=== PATIENT | female | born 1935 | race Caucasian/White ===

== ENCOUNTER 2017-10-31 16:51 | Emergency (ER) | payer MEDICARE ==
[2017-10-31 17:45] LABS: #Eosinphils 0.1 thou/uL (0.0-0.7); #Lymphocytes 2.2 thou/uL (1.20-3.40); #Monocytes 0.7 thou/uL (0.11-0.59); #Neutrophils 3.3 thou/uL (1.40-6.50); %Basophils 0.5 % (0.0-1.0); %Eosinophils 1.3 % (0.0-10.0); %Lymphocytes 35.2 % (21.0-51.0); %Monocytes 10.7 % (0.0-10.0); Hematocrit 42.3 % (36.0-47.0); Mean Platelet Volume 7.9 fL (7.4-10.4); Red Blood Cell (RBC) Count 4.58 mill/uL (4.20-5.40); White Blood Cell (WBC) Count 6.3 thou/uL (4.8-10.8)
[2017-10-31 18:09] LABS: ALT (SGPT) 12 U/L (8-55); AST (SGOT) 17 U/L (5-34); Alkaline Phosphatase 68 U/L (40-150); Anion Gap 12 mmol/L (10-20); BUN (Urea Nitrogen) 15 mg/dL (9.8-20.1); Bilirubin, Total 0.4 mg/dL (0.2-1.2); Calc. Creatinine Clearance 0 mL/min (70-130); Calcium 9.5 mg/dL (7.8-10.44); Carbon Dioxide 26 mmol/L (23-31); Chloride 104 mmol/L (98-107); Estimated GFR-MDRD 85; Globulin 3.8 g/dL (2.4-3.5); Protein, Total 7.8 g/dL (6.0-8.3)
[2017-10-31 18:12] LABS: Troponin I Less than 0.010 ng/mL (< 0.028)
[2017-10-31 18:13] LABS: Bilirubin Negative (Negative); Blood, Urine Negative (Negative); Glucose, Urine (Dipstick) Negative (Negative); Ketone, Urine Negative (Negative); Nitrite Negative (Negative); Protein, Urine (Dipstick) Negative (Neg-Trace); Urobilinogen 0.2 mg/dL (0.2-1.0)
[2017-10-31 18:16] LABS: Bacteria/HPF 4+ HPF (None Seen); Hyaline Casts/LPF 0-3 HYALINE CAST LPF (0-3 Hyaline); RBC/HPF 0-3 HPF (0-3); Squamous Epithelial None Seen HPF (0-3)
[2017-10-31] MEDS ORDERED: Ondansetron HCl/PF 4 MG/2 ML Vial ONE (18:33)
[2017-10-31] MEDS ORDERED: Nitrofurantoin Macrocrystal 50 MG CAP PO SCH (20:00)
--- NOTE | 2017-10-31 21:05 | RAD ---
EXAM: ONE VIEW CHEST 10/31/17 HISTORY: Slurred speech, nonreactive left pupil. COMPARISON: 03/24/17. FINDINGS: Portable upright chest demonstrates sternotomy wires. Normal cardiac silhouette. Pulmonary vessels an d hilum are normal. Costophrenic angles are clear. No consolidation or mass. No pneumothorax or osseo us abnormalities. IMPRESSION: No acute cardiopulmonary process. POS: [facility]
--- NOTE | 2017-10-31 21:09 | CT ---
EXAM: NONCONTRAST HEAD CT 10/31/17 COMPARISON: 03/24/17, 12/08/16. HISTORY: Slurred speech. Nonreactive left pupil. TECHNIQUE: Noncontrast head CT is performed from skull base to skull vertex. FINDINGS: No parenchymal hemorrhage. No extra-axial hematoma. No midline shift. Basilar cisterns are patent. Br ain volume, age appropriate. Cortical cheek-white matter differentiation is preserved. Ventricles and sulci are patent and symmetric. Chronic small vessel ischemic changes of the white mat ter are identified. Remote white matter infarct to the left and right frontal subcortical white matte r. Remote infarct involving the mid portion of the left allen radiata extending into the posterior a spect of the left lentiform nucleus. Stable hypodensity in the right lentiform nucleus. Stable opacif ication of the right middle ear. Adequate aeration of the left mastoid air cells and paranasal sinuse s. Intact calvarium. IMPRESSION: 1. No acute intracranial process. 2. Chronic small vessel ischemic changes of the white matter. 3. Remote insult involving the white matter structures and deep cheek matter structures. POS: [facility]
--- NOTE | 2017-11-24 13:26 | EKG ---
Test Reason : SLURRED SPEECH Blood Pressure : / mmHG Vent. Rate : 056 BPM Atrial Rate : 056 BPM P-R Int : 256 ms QRS Dur : 076 ms QT Int : 450 ms P-R-T Axes : 072 -16 054 degrees QTc Int : 434 ms Sinus bradycardia with 1st degree A-V block Possible Left atrial enlargement Anteroseptal infarct , age undetermined Abnormal ECG Confirmed by VJ JEFFERSON ([id number]), magazine editor PUMA PETERSON ([id number]) on 11/24/2017 1:26:15 PM Referred By: Confirmed By:VJ JEFFERSON
== END 2017-10-31 20:38 | disposition home or self-care (01) ==
LOC: ERS 16:51
DX: N39.0 Urinary tract infection, site not specified (principal); E11.9 Type 2 diabetes mellitus without complications; I10 Essential (primary) hypertension; G40.909 Epilepsy, unspecified, not intractable, without status epilepticus; F32.9 Major depressive disorder, single episode, unspecified; Z79.84 Long term (current) use of oral hypoglycemic drugs; Z79.899 Other long term (current) drug therapy; Z86.73 Personal history of transient ischemic attack (TIA), and cerebral infarction without residual deficits
CPT/HCPCS: 36415; 70450; 71010; 80053; 81003; 81015; 82553; 84484; 85025; 93005; J2405

== ENCOUNTER 2017-10-31 20:39 | Inpatient (IN) | payer MEDICARE ==
[2017-10-31] MEDS ORDERED: Ondansetron ODT 4 MG TAB ONE (21:20)
[2017-10-31] MEDS ORDERED: Lorazepam 2 MG/ML VIAL ONE (21:38)
[2017-10-31] MEDS ORDERED: Metoclopramide HCl 10 MG/2 ML VIAL ONE (21:38)
--- NOTE | 2017-10-31 22:53 | RAD ---
EXAM: ONE VIEW ABDOMEN 10/31/17 HISTORY: Nausea. Vomiting. COMPARISON: None. Nonspecific bowel gas pattern. No suspicious densities in the abdomen and pelvis. Calcification of th e splenic artery is noted. No pneumoperitoneum in the supine projection. There is a small amount of f ecal material in the distal sigmoid colon and rectum. IMPRESSION: Nonspecific bowel gas pattern. POS: [facility]
[2017-11-01] MEDS ORDERED: Ondansetron ODT 4 MG TAB SL PRN (01:17)
[2017-11-01] MEDS ORDERED: Sodium Chloride 0.9% 1,000 ML IV SCH (01:17)
[2017-11-01] MEDS ORDERED: Ondansetron HCl/PF 4 MG/2 ML Vial IVP PRN ×2 (01:17→07:55)
[2017-11-01] MEDS ORDERED: Acetaminophen 325 MG TAB PO PRN (01:17)
[2017-11-01] MEDS ORDERED: hydrALAZINE 20 MG/ML VIAL SLOW IVP PRN (01:18)
[2017-11-01 01:43] VITALS: BMI 19.5
[2017-11-01] MEDS ORDERED: Dextrose 5% in Water 1,000 ML IV PRN (07:54)
[2017-11-01] MEDS ORDERED: Insulin Regular 300 UNITS/3 ML VIAL SC PRN ×2 (07:54)
[2017-11-01] MEDS ORDERED: Dextrose 50% Abboject 50 ML SYRINGE IVP PRN (07:54)
[2017-11-01] MEDS ORDERED: Sodium Chloride 0.9% 500 ML IVPB SCH (08:00)
[2017-11-01] MEDS ORDERED: Metoprolol Tartrate 5 MG/5 ML VIAL IVP SCH (08:00)
--- NOTE | 2017-11-01 08:28 | HP ---
DATE OF ADMISSION: 11/01/2017 CHIEF COMPLAINT ON ADMISSION: Persistent nausea and vomiting. HISTORY OF PRESENT ILLNESS: The patient is an 82-year-old female who had been seen earlier in the em ergency room on the day of admission, what her family thought was possible CVA. She had stroke-like symptoms. She had a negative workup except for a UTI and was being discharged home. When she got in to her car, she began having persistent nausea and vomiting. She was brought back into the emergency room where it was decided to admit her due to frailty, failure to thrive and persistent nausea and v omiting. She was felt to be somewhat dry as well. PAST MEDICAL HISTORY: Significant for multiple UTIs in the last several months and a stroke in February . She had breast cancer in the past. 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 PAST SURGICAL HISTORY: Her surgeries include coronary artery bypass graft surgery with 4 vessels, ma stectomy of the left breast. PSYCHIATRIC HISTYORY: She has had psychiatric history in the past significant for depression. SOCIAL HISTORY: There has been no recent alcohol, drug use or smoking. She lives at home with her lamar blackwood. ALLERGIES: To PROMETHAZINE and SULFA. CURRENT MEDICATIONS: Include aspirin 325 one daily, Vasotec 10 mg daily, gabapentin 400 mg at bedtim e, Keppra 500 mg b.i.d., Lipitor 20 mg at bedtime, metoprolol succinate 50 mg daily, metformin 500 mg b.i.d., citalopram 10 mg daily, and multiple vitamin. REVIEW OF SYSTEMS: General: Showed no fever, chills, weakness, or sweats. HEENT: No change in vis ion or pain. No sore throat, coughing or congestion. Cardiovascular: Denies palpitations, chest pa in. Chest: Denies shortness of breath or coughing. Gastrointestinal: Significant for nausea, vomi ting as one of the reason for admission. Denies diarrhea, no blood in urine or stool. Genitourinary : Denies painful urination or hematuria. Musculoskeletal: Complains of pain in the right hip and r ight knee. There has been no falls or trauma. Neurologic: No complaints of dizziness, headache or blurred vision. Endocrine: No areas of swelling or edema. Skin: No new rashes, lesions or hives. Psychiatric: No change in mentation. PHYSICAL EXAMINATION: At the time of admission: VITAL SIGNS: Blood pressure was 204/44, pulse 70, respirations 18, temperature 99.2, pain scale is 0 , O2 sat is 93% on room air. GENERAL: This is an elderly cachectic female, alert and responsive, but somewhat confused, stating that her days have run together. HEENT: Temporal wasting noted with sunken eyes. TMs and nares clear. Pharynx is somewhat dry. NECK: Supple, trachea midline, no mass. CHEST: Clear to auscultation. HEART: Irregular rate, irregular rhythm. BREASTS: Status post left mastectomy. ABDOMEN: Generally tender around the stomach, but no acute areas of pain or tenderness. GENITOURINARY: Deferred. EXTREMITIES: Without clubbing, cyanosis, or edema. There is symmetrical muscular wasting in upper a nd lower extremities. No evidence of swelling or deep venous thrombosis. There is pain in the right hip with palpation, felt to be a developing pressure sore. SKIN: Without rashes or lesions. Poor turgor is noted. NEUROLOGIC: Cranial nerves are grossly intact. Sensory is grossly intact. Unable to test gait and cerebellar function. Mental status is mildly confused, questioning, but responsive, clear and logica l. LABORATORY DATA: Lab work on admission showed WBCs at 6.3, hemoglobin 13.9, hematocrit 42.3 with giorgio telets at 206. Her sodium is 138, potassium 3.7, chloride 104, CO2 26, BUN 15, creatinine 0.67, gluc ose of 127. Hemoglobin A1c has not been done in quite some time. Calcium 9.5. Liver functions unre markable. UA shows too numerous to count WBCs with moderate leukocyte esterase. ASSESSMENT: 1. Urinary tract infection with possible early septic changes. 2. Dehydration. 3. Adult failure to thrive with diffuse muscular wasting. 4. Nausea and vomiting, probably due to urinary tract infection. 5. Right hip pain, probably arthritic versus developing pressure sore. 6. Hypertension. We will try to control her blood pressure with metoprolol and/or IV Vasotec. PLAN: Will be IV fluid bolus, IV antibiotics, and antiemetics. Pain management by turning the patie nt every 2 hours and get a specialty mattress to relieve pressure sores and serially reevaluate her.
[2017-11-01] MEDS: levETIRAcetam 500 MG TAB PO SCH ×2 (09:39→20:16)
[2017-11-01] MEDS: cefTRIAXone\\ROCEPHIN 1 GM, Syringe 0.4 ML in Sterile Water 9.6 ML SLOW IVP SCH (09:46)
[2017-11-01] MEDS: Acetaminophen 325 MG TAB PO PRN (10:13)
[2017-11-01] MEDS: Sodium Chloride 0.9% 1,000 ML IV SCH ×2 (12:05→20:16)
--- NOTE | 2017-11-01 12:54 | EKG ---
Test Reason : Blood Pressure : / mmHG Vent. Rate : 123 BPM Atrial Rate : 125 BPM P-R Int : 000 ms QRS Dur : 080 ms QT Int : 354 ms P-R-T Axes : 000 -07 175 degrees QTc Int : 506 ms Atrial fibrillation with RVR. Septal infarct (cited on or before 22-SEP-2000) Marked ST abnormality, possible inferior subendocardial injury Marked ST abnormality, possible anterolateral subendocardial injury Abnormal ECG When compared with ECG of 31-OCT-2017 17:18, (Unconfirmed) Afib has replaced Sinus rhythm. Significant changes have occurred Confirmed by KRISH CARRANZA ([id number]) on 11/01/2017 12:53:36 PM Referred By: Neville BOWMAN Confirmed By:KRISH CARRANZA
[2017-11-02] MEDS: Sodium Chloride 0.9% 1,000 ML IV SCH ×3 (00:21→16:37)
[2017-11-02 06:32] LABS: #Eosinphils 0.1 thou/uL (0.0-0.7); #Lymphocytes 2.3 thou/uL (1.20-3.40); #Monocytes 0.8 thou/uL (0.11-0.59); #Neutrophils 4.9 thou/uL (1.40-6.50); %Basophils 0.3 % (0.0-1.0); %Lymphocytes 28.5 % (21.0-51.0); Hematocrit 35.4 % (36.0-47.0); Mean Platelet Volume 8.5 fL (7.4-10.4); Red Blood Cell (RBC) Count 3.84 mill/uL (4.20-5.40); White Blood Cell (WBC) Count 8.1 thou/uL (4.8-10.8)
[2017-11-02 06:44] LABS: Anion Gap 11 mmol/L (10-20); BUN (Urea Nitrogen) 8 mg/dL (9.8-20.1); Calc. Creatinine Clearance 66 mL/min (70-130); Calcium 8.6 mg/dL (7.8-10.44); Carbon Dioxide 22 mmol/L (23-31); Chloride 109 mmol/L (98-107); Estimated GFR-MDRD Greater than 90
--- NOTE | 2017-11-02 08:09 | PRG ---
DATE OF SERVICE: 11/02/2017 This is ANANTH Torres-Justine dictating for Brent Banda M.D. SUBJECTIVE: The patient is awake. She denies any problems besides her right hip hurting just a taj le bit. PHYSICAL EXAMINATION: GENERAL: Upon evaluation, she is awake. VITAL SIGNS: Her blood pressure is 160/70, pulse 60, respirations afebrile. NECK: Supple with no increased JVP or carotid bruit. Carotid had good upstroke with no thyromegaly. COR: Regular rate and rhythm. CHEST: Symmetrical. Clear to auscultation and percussion. ABDOMEN: Soft and nontender with normoactive bowel sounds. No bruit or organomegaly. EXTREMITIES: No edema. She had palpable pedal pulses. NEUROLOGIC: She is awake, but does have slurred speech and does have weakness from her stroke. LABORATORY DATA: Showed normal CBC. Her CMP showed glucose slightly being elevated at 115. We stil l do not have her urine C&S. ASSESSMENT: 1. Right hip degenerative joint disease. 2. Dehydration. 3. Urinary tract infection with normal culture as outpatient. PLAN: We will wait for the culture now to make sure it is negative. We will also talk to the daught er about jail placement. Otherwise, we will follow up with lab in the morning.
[2017-11-02] MEDS: levETIRAcetam 500 MG TAB PO SCH ×2 (08:22→20:28)
[2017-11-02] MEDS: cefTRIAXone\\ROCEPHIN 1 GM, Syringe 0.4 ML in Sterile Water 9.6 ML SLOW IVP SCH (08:23)
[2017-11-02] MEDS ORDERED: FLU VACC TS2017-18 (>65YR) 0.5 ML SYRINGE IM ONE (09:00)
--- NOTE | 2017-11-02 10:06 | PQF ---
CLINICAL DOCUMENTATION IMPROVEMENT CLARIFICATION FORM: ICD-10 Updated PLEASE DO AN ADDENDUM TO THE PROGRESS NOTE WITH ANY DOCUMENTATION UPDATES OR ADDITIONS AND CARRY THROUGH TO DC SUMMARY. THANK YOU. Date: 11/07/17 ATTN: DR. BOWMAN Please exercise your independent, professional judgment in responding to the clarification form. Clinical indicators are provided on the bottom of this form for your review Please check appropriate box(s): [ ] Protein Calorie Malnutrition: [ ] Mild [ ] Moderate [ ] Severe [ ] Other Malnutrition (please specify) __ [ ] Underweight without malnutrition [ x ] Cachexia [ ] Other diagnosis [ ] Unable to determine In addition, please specify: Present on Admission (POA): [ x ] Yes [ ] No [ ] Unable to determine CLINICAL INDICATORS - SIGNS / SYMPTOMS / LABS DIETARY NOTE 11/01: "KCAL AND G PROTEIN LIKELY NOT MET/CLEAR LIQUID DIET IS NOTE ADEQUATE." H&P 11/01: "SHE WAS BROUGHT BACK INTO THE EMERGENCY ROOM WHERE IT WAS DECIDED TO ADMIT HER DUE TO FRAILTY, FAILURE TO THRIVE AND PERSISTENT NAUSEA AND VOMITING. " H&P 11/01: "ADULT FAILURE TO THRIVE WITH DIFFUSE MUSCULAR WASTING" BMI 19.5 RISKS: NAUSEA AND VOMITING PER H&P TREATMENT: DIETARY CONSULT NUTRITIONAL SUPPLEMENTS ANTIEMETICS (This form is maintained as a part of the permanent medical record) 2014 [employer]. All Rights Reserved AMANDA [email or web address] Office: [phone] [facility]ENTER[facility]
[2017-11-02] MEDS: Acetaminophen 325 MG TAB PO PRN (17:20)
[2017-11-02] MEDS ORDERED: Amlodipine 10 MG TAB PO SCH (20:15)
[2017-11-02] MEDS: cloNIDine 0.1 MG TAB PO PRN (23:00)
[2017-11-03 05:41] LABS: #Eosinphils 0.1 thou/uL (0.0-0.7); #Lymphocytes 1.6 thou/uL (1.20-3.40); #Monocytes 0.7 thou/uL (0.11-0.59); %Basophils 0.3 % (0.0-1.0); %Eosinophils 0.7 % (0.0-10.0); %Lymphocytes 17.2 % (21.0-51.0); %Monocytes 7.5 % (0.0-10.0); Hematocrit 39.4 % (36.0-47.0); Mean Platelet Volume 8.3 fL (7.4-10.4); Red Blood Cell (RBC) Count 4.28 mill/uL (4.20-5.40); White Blood Cell (WBC) Count 9.4 thou/uL (4.8-10.8)
[2017-11-03 06:18] LABS: Anion Gap 13 mmol/L (10-20); BUN (Urea Nitrogen) 7 mg/dL (9.8-20.1); Calc. Creatinine Clearance 63 mL/min (70-130); Carbon Dioxide 21 mmol/L (23-31); Chloride 106 mmol/L (98-107)
[2017-11-03 06:19] LABS: ALT (SGPT) 10 U/L (8-55); AST (SGOT) 21 U/L (5-34); Alkaline Phosphatase 69 U/L (40-150); Bilirubin, Total 0.7 mg/dL (0.2-1.2); Estimated GFR-MDRD Greater than 90; Globulin 3.5 g/dL (2.4-3.5); Protein, Total 7.1 g/dL (6.0-8.3)
[2017-11-03] MEDS: cefTRIAXone\\ROCEPHIN 1 GM, Syringe 0.4 ML in Sterile Water 9.6 ML SLOW IVP SCH (07:51)
[2017-11-03] MEDS: levETIRAcetam 500 MG TAB PO SCH ×2 (07:51→21:22)
--- NOTE | 2017-11-03 07:58 | PRG ---
DATE OF SERVICE: 11/03/2017 The patient had a good night. I spoke with the daughter yesterday and the daughter does want the pat ient to go to [facility] facility before she comes home. Her blood pressure was high during the night and therefore had to give Norvasc. PHYSICAL EXAMINATION: GENERAL: She is awake, alert, and oriented. VITAL SIGNS: Her blood pressure is better at 160/66, pulse 88, respiration 16, she is afebrile. NECK: Supple with no increased JVP or carotid bruit. Carotid had good upstroke with no thyromegaly. COR: Regular rate and rhythm. CHEST: Symmetrical. Clear to auscultation and percussion. ABDOMEN: Soft, nontender with normoactive bowel sounds. No bruit or organomegaly. EXTREMITIES: No edema or cyanosis. She had palpable pedal pulses. SKIN: There is no evidence of ulcers lesion, or rash. NEUROLOGIC: She is awake, alert, and oriented to person, place, and time. LABORATORY DATA: Her CBC is normal. Her blood sugar is 140. ASSESSMENT: 1. Urinary tract infection, pending culture. 2. Dehydration. 3. Cerebrovascular accident. 4. Hypertension. PLAN: We will order PT and OT screening. We will also begin Norvasc 5 mg every day. The patient wi ll only need [facility] facility short term which will be definitely less than a month. I updat ed daughter yesterday and I will try to contact her again today.
[2017-11-03] MEDS: Sodium Chloride 0.9% 1,000 ML IV SCH ×2 (08:01→11:31)
[2017-11-03] MEDS: Amlodipine 5 MG TAB PO SCH (08:31)
[2017-11-03] MEDS: Acetaminophen 325 MG TAB PO PRN (18:26)
[2017-11-04] MEDS: Sodium Chloride 0.9% 1,000 ML IV SCH ×4 (04:51→22:20)
--- NOTE | 2017-11-04 07:47 | PRG ---
DATE OF SERVICE: 11/03/2017 This is DARREN Torres dictating a progress note for Brent Banda M.D. SUBJECTIVE: Patient is awake. She is alert. She had a good night. PHYSICAL EXAMINATION: VITAL SIGNS: Upon evaluation, her blood pressure is 158/60, pulse 56, respirations 14. She is afebr ile. NECK: Supple with no increased JVP or carotid bruit. Carotid had good upstroke with no thyromegaly. COR: Regular rate and rhythm. CHEST: Symmetrical. Clear to auscultation and percussion. ABDOMEN: Soft and nontender with normoactive bowel sounds. There is no bruit or organomegaly. EXTREMITIES: No edema. She had palpable pedal pulses. SKIN: There is no evidence of ulcer, lesion, or rash. NEUROLOGIC: She is awake, alert, and oriented. LABORATORY DATA: She had no lab in the chart. Her urine culture is negative. ASSESSMENT: 1. Dehydration. 2. Urinary tract infection. 3. Hypertension. PLAN: We will wait for the final culture and once we have that back, we will look at sending to [facility] as patient has been approved for [facility].
[2017-11-04] MEDS: levETIRAcetam 500 MG TAB PO SCH ×2 (08:11→21:08)
[2017-11-04] MEDS: cefTRIAXone\\ROCEPHIN 1 GM, Syringe 0.4 ML in Sterile Water 9.6 ML SLOW IVP SCH (08:14)
[2017-11-04] MEDS: Amlodipine 5 MG TAB PO SCH (08:18)
[2017-11-04] MEDS: Acetaminophen 325 MG TAB PO PRN (17:52)
[2017-11-05] MEDS: cloNIDine 0.1 MG TAB PO PRN (04:31)
[2017-11-05] MEDS: Sodium Chloride 0.9% 1,000 ML IV SCH ×3 (04:50→20:46)
[2017-11-05] MEDS: levETIRAcetam 500 MG TAB PO SCH ×2 (08:02→20:42)
[2017-11-05] MEDS: cefTRIAXone\\ROCEPHIN 1 GM, Syringe 0.4 ML in Sterile Water 9.6 ML SLOW IVP SCH (08:02)
[2017-11-05] MEDS: Amlodipine 5 MG TAB PO SCH (08:09)
--- NOTE | 2017-11-05 08:22 | PRG ---
DATE OF SERVICE: 11/05/2017 This is ANANTH Torres-Justine dictating a progress note for Brent Banda M.D SUBJECTIVE: The patient had a good night. Her appetite is okay. She denies any complaints. PHYSICAL EXAMINATION: VITAL SIGNS: Upon evaluation, her blood pressure is high at 153/70, pulse 50, respiration rate 18. She is afebrile. NECK: Supple. No increased JVP. Carotid had good upstroke with no thyromegaly. COR: Regular rate and rhythm. CHEST: Symmetrical. Clear to auscultation and percussion. ABDOMEN: Soft and nontender with normoactive bowel sounds. There is no bruit or organomegaly. EXTREMITIES: No edema or cyanosis. She had palpable pedal pulses. SKIN: There is no evidence of ulceration, lesion, or rash. NEUROLOGIC: She is awake, alert, and oriented to person, place, and time. She remains weak from her prior CVA. LABORATORY DATA: There is no lab in the chart except glucose being 120. Urine culture final came ba ck to no growth. ASSESSMENT: 1. Dehydration. 2. Signs and symptoms of urinary tract infection, but normal culture. 3. Hypertension. 4. History of cerebrovascular accident. PLAN: The patient will be changed to Norvasc 10 mg every day. We will also change her IV antibiotic s to by mouth. If all okay, look at sending home the patient tomorrow.
[2017-11-05] MEDS ORDERED: Amlodipine 5 MG TAB PO SCH (10:00)
[2017-11-05] MEDS: Amlodipine 10 MG TAB PO SCH (10:04)
[2017-11-05] MEDS: Nitrofurantoin Monohyd/M-Cryst 100 MG CAP PO SCH ×2 (10:26→20:42)
[2017-11-06] MEDS: cloNIDine 0.1 MG TAB PO PRN (00:41)
[2017-11-06] MEDS: Sodium Chloride 0.9% 1,000 ML IV SCH ×2 (05:27→14:08)
[2017-11-06] MEDS: levETIRAcetam 500 MG TAB PO SCH (08:35)
[2017-11-06] MEDS: Nitrofurantoin Monohyd/M-Cryst 100 MG CAP PO SCH (08:35)
[2017-11-06] MEDS: Amlodipine 10 MG TAB PO SCH (08:35)
[2017-11-06 17:49] VITALS: BP 177/69
[2017-11-06 17:51] VITALS: TEMP 97.9
== END 2017-11-06 18:17 | DRG 690 ==
LOC: ERS 20:39 → T4-B 11-01 01:06
PROVIDERS: ADMIT Specialist; ATTEND Specialist
DX: N39.0 Urinary tract infection, site not specified (principal); E86.0 Dehydration; E11.9 Type 2 diabetes mellitus without complications; Z68.1 Body mass index [BMI] 19.9 or less, adult; R11.2 Nausea with vomiting, unspecified; I10 Essential (primary) hypertension; I25.10 Atherosclerotic heart disease of native coronary artery without angina pectoris; G40.909 Epilepsy, unspecified, not intractable, without status epilepticus; Z86.73 Personal history of transient ischemic attack (TIA), and cerebral infarction without residual deficits; Z95.1 Presence of aortocoronary bypass graft; Z90.12 Acquired absence of left breast and nipple; F32.9 Major depressive disorder, single episode, unspecified; Z88.2 Allergy status to sulfonamides; Z88.8 Allergy status to other drugs, medicaments and biological substances; Z79.84 Long term (current) use of oral hypoglycemic drugs; Z79.82 Long term (current) use of aspirin; R62.7 Adult failure to thrive; M62.50 Muscle wasting and atrophy, not elsewhere classified, unspecified site; M16.11 Unilateral primary osteoarthritis, right hip
CPT/HCPCS: 36415; 36416; 51701; 70450; 71010; 74000; 80048; 80053; 81003; 81015; 82553; 84484; 85025; 87086; 93005; 93010; 96365; 96374; 96375; A4216; A4353; G8978-GP-CN; G8979-GP-CM; G8987-GO-CL; G8988-GO-CJ; J0360; J0696; J1815; J2060; J2405; J2765; Q0162